=== PATIENT | male | born 1975 | race Hispanic/Latino ===

== ENCOUNTER 2017-01-17 04:51 | Emergency (ER) | payer OTHER ==
[2017-01-17 05:03] VITALS: PULSE 73; RESP 16; TEMP 98.4; O2SAT 99
[2017-01-17] MEDS ORDERED: cefTRIAXone (Rocephin) 1 gm Inj IM ONE (05:29)
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
[2017-01-17] MEDS ORDERED: cefTRIAXone (Rocephin) 250 mg Inj ONE (06:57)
[2017-01-17] MEDS ORDERED: Sterile Water 10 ML IV ONE (06:58)
[2017-01-17 07:00] LABS: RBC URINE 433 /hpf (0-3); URINE BACTERIA MANY (<OCC); URINE BILIRUBIN NEGATIVE (NEGATIVE); URINE BLOOD LARGE (NEGATIVE); URINE COLOR AMBER (YELLOW); URINE GLUCOSE (UA) NEG (Normal); URINE KETONE NEGATIVE (NEGATIVE); URINE LEUKOCYTE ESTERASE LARGE Leu/uL (Negative); URINE PROTEIN >=500 mg/dL (NEGATIVE); URINE UROBILINOGEN 0.2-1.0 mg/dL (0.2-1.0); WBC CLUMPS MANY /hpf; WBC URINE 2883 /hpf (0-5)
[2017-01-17 07:48] VITALS: BP 99/59
== END 2017-01-17 08:28 | disposition home or self-care (01) ==
LOC: H.ER 04:51
DX: N39.0 Urinary tract infection, site not specified (principal); Z79.01 Long term (current) use of anticoagulants; G82.50 Quadriplegia, unspecified
CPT/HCPCS: 81003; 87086; 96372; 99283; J0696